=== PATIENT | female | born 1970 | race Caucasian/White ===

== ENCOUNTER 2021-09-18 15:17 | Emergency (ER) | payer OTHER ==
[~2021-09-18] VITALS: Ht 162.6 cm; Wt 68.0 kg
[2021-09-18] MEDS ORDERED: ONDANSETRON HCL/PF 4 MG/2 ML VIAL IVP ONE (16:00)
[2021-09-18] MEDS ORDERED: TDAP [DIPH/PERTUSSIS/TET] 0.5 ML VIAL IM ONE ×2 (16:00→16:11)
[2021-09-18] MEDS ORDERED: MORPHINE SULFATE INJ 2 MG/ML DISP.SYRIN IV ONE (16:00)
--- NOTE | 2021-09-18 16:02 | NUR ---
WHEELED OUT VIA [facility] FOR CT SCAN
[2021-09-18] MEDS ORDERED: MORPHINE SULFATE INJ 4 MG/ML DISP.SYRIN ONE (16:10)
[2021-09-18] MEDS ORDERED: ONDANSETRON HCL/PF 4 MG/2 ML VIAL ONE (16:10)
[2021-09-18] MEDS ORDERED: HYDR-4303 PO (17:46)
[2021-09-18] MEDS ORDERED: CEPH500C2 PO (17:46)
[2021-09-18] MEDS ORDERED: IBUP-1957 PO (17:46)
[2021-09-18] MEDS ORDERED: CEPHALEXIN MONOHYDRATE 500 MG CAPSULE PO ONE ×2 (18:00→18:02)
--- NOTE | 2021-09-18 18:15 | NUR ---
SPOKE TO TYRA DONG [phone], [employer] PATIENT AT 1900
--- NOTE | 2021-09-18 18:16 | NUR ---
PATIENT COMPLAINED OF PAIN AT THE TAIL BONE AREA, MADE AWARE
--- NOTE | 2021-09-18 18:26 | NUR ---
WHEELED OUT VIA [facility] FOR CT SCAN
[2021-09-18] MEDS ORDERED: HYDROCODONE/APAP 5/325MG TABLET PO ONE (18:30)
--- NOTE | 2021-09-18 18:50 | NUR ---
SHOULDER SLING APPLIED.
[2021-09-18] MEDS ORDERED: HYDROCODONE/APAP 5/325MG TABLET ONE (19:35)
--- NOTE | 2021-09-18 19:55 | NUR ---
IV removed. Catheter intact and site benign. Pressure and 4x4 applied to site. No bleeding noted.Patient discharged to home in stable condition with the . Written and verbal after care instructions given. Patient verbalizes understanding of instruction.
[2021-09-18] MEDS ORDERED: ONDANSETRON 4 MG TAB.RAPDIS ONE (19:58)
[2021-09-18 20:00] VITALS: BP 127/73
[2021-09-18] MEDS ORDERED: ONDANSETRON 4 MG TAB.RAPDIS SL ONE (20:00)
== END 2021-09-18 20:01 | disposition home or self-care (01) ==
LOC: ER 15:22
DX: S39.012A Strain of muscle, fascia and tendon of lower back, initial encounter (principal); S01.21XA Laceration without foreign body of nose, initial encounter; S80.211A Abrasion, right knee, initial encounter; I10 Essential (primary) hypertension; W18.30XA Fall on same level, unspecified, initial encounter; Y93.89 Activity, other specified; Y92.481 Parking lot as the place of occurrence of the external cause; Y99.8 Other external cause status
CPT/HCPCS: 12011; 29105; 70450; 70486; 72131; 73070; 73562; 90471; 90715; 96374; 96375; 99284; A6403; J2270; J2405; Q0162